=== PATIENT | male | born 1975 | race Caucasian/White ===

== ENCOUNTER 2018-08-26 20:49 | Emergency (ER) | payer OTHER, SELFPAY ==
[2018-08-26] MEDS ORDERED: Ondansetron PF 4 MG/2 ML Vial ONE (21:21)
[2018-08-26] MEDS ORDERED: Famotidine In NaCl 20 mg/50 ml Premix Bag ONE (21:21)
[2018-08-26 21:57] LABS: #Basophils 0.1 thou/uL (0.0-0.2); #Lymphocytes 1.6 thou/uL (1.20-3.40); #Neutrophils 11.2 thou/uL (1.40-6.50); %Basophils 0.8 % (0.0-1.0); %Eosinophils 0.3 % (0.0-10.0); %Lymphocytes 11.5 % (21.0-51.0); %Monocytes 6.9 % (0.0-10.0); %Neutrophils 80.4 % (42.0-75.0); Hemoglobin 18.5 g/dL (14.0-18.0); Mean Corpuscular HGB CONC 33.4 g/dL (32.0-36.0); Mean Corpuscular Hemoglobin 30.1 pg (27.0-31.0); Mean Corpuscular Volume 90.3 fL (78.0-98.0); Mean Platelet Volume 7.1 fL (7.4-10.4); Platelet Count 286 thou/uL (130-400); RBC Distribution Width 13.3 % (11.5-14.5); Red Blood Cell (RBC) Count 6.15 mill/uL (4.70-6.10); White Blood Cell (WBC) Count 13.9 thou/uL (4.8-10.8)
[2018-08-26 22:01] LABS: Bilirubin Negative (Negative); Blood, Urine Negative (Negative); Clarity Clear (Clear); Glucose, Urine (Dipstick) Negative (Negative); Leukocyte Negative (Negative); Nitrite Negative (Negative); Protein, Urine (Dipstick) Negative (Neg-Trace); Specific Gravity, Urine 1.025 (1.005-1.030); Urobilinogen 0.2 mg/dL (0.2-1.0); pH, Urine 5.5 (5.0-9.0)
[2018-08-26 22:10] LABS: ALT (SGPT) 25 U/L (8-55); AST (SGOT) 14 U/L (5-34); Albumin 4.5 g/dL (3.5-5.0); Alkaline Phosphatase 60 U/L (40-150); Anion Gap 14 mmol/L (10-20); BUN (Urea Nitrogen) 21 mg/dL (8.9-20.6); Bilirubin, Total 0.5 mg/dL (0.2-1.2); Calc. Creatinine Clearance 0 mL/min (70-130); Calcium 10.4 mg/dL (7.8-10.44); Carbon Dioxide 25 mmol/L (22-29); Chloride 101 mmol/L (98-107); Estimated GFR-MDRD 82; Globulin 3.5 g/dL (2.4-3.5); Glucose 100 mg/dL (70-105); Lipase 31 U/L (8-78); Potassium 4.4 mmol/L (3.5-5.1); Sodium 136 mmol/L (136-145)
[2018-08-26] MEDS ORDERED: Ciprofloxacin Lactate/D5W 400 mg/200 ml Premix ONE (22:23)
== END 2018-08-26 23:45 | disposition home or self-care (01) ==
LOC: BURERS 20:49
DX: R19.7 Diarrhea, unspecified (principal); F90.9 Attention-deficit hyperactivity disorder, unspecified type; F32.9 Major depressive disorder, single episode, unspecified; F41.9 Anxiety disorder, unspecified; R11.0 Nausea; Z79.899 Other long term (current) drug therapy
CPT/HCPCS: 36415; 80053; 81003; 82274; 83690; 85025; 87045; 87046; 87081; 87449; 87899; 96365; 96367; 96375; J0744; J2405

== ENCOUNTER 2018-12-15 20:45 | Emergency (ER) | payer SELFPAY ==
[2018-12-15] MEDS ORDERED: Promethazine HCl 25 MG/ML VIAL ONE (21:22)
[2018-12-15 21:30] LABS: Hemoglobin 18.1 g/dL (14.0-18.0); Mean Corpuscular HGB CONC 33.3 g/dL (32.0-36.0); Mean Corpuscular Hemoglobin 30.1 pg (27.0-31.0); Mean Corpuscular Volume 90.3 fL (78.0-98.0); Mean Platelet Volume 6.7 fL (7.4-10.4); Platelet Count 291 thou/uL (130-400); Red Blood Cell (RBC) Count 6.02 mill/uL (4.70-6.10)
[2018-12-15 21:34] LABS: ALT (SGPT) 25 U/L (8-55); AST (SGOT) 23 U/L (5-34); Albumin 5.1 g/dL (3.5-5.0); Alkaline Phosphatase 70 U/L (40-150); BUN (Urea Nitrogen) 38 mg/dL (8.9-20.6); Bilirubin, Total 0.9 mg/dL (0.2-1.2); Calc. Creatinine Clearance 0 mL/min (70-130); Calcium 11.3 mg/dL (7.8-10.44); Chloride 104 mmol/L (98-107); Estimated GFR-MDRD 17; Globulin 3.6 g/dL (2.4-3.5); Glucose 147 mg/dL (70-105); Lipase 47 U/L (8-78); Potassium 4.6 mmol/L (3.5-5.1); Protein, Total 8.7 g/dL (6.0-8.3); Sodium 141 mmol/L (136-145)
[2018-12-15 22:00] LABS: Lymphocytes 5 % (21-51); MDiff Complete? YES; Monocytes 10 % (0-10); Neutrophil 85 % (42-75); Platelet Morphology Comment Appears Adequate; RBC Morphology Normal
[2018-12-15 22:40] LABS: Bilirubin Negative (Negative); Blood, Urine Trace (Negative); Clarity Cloudy (Clear); Glucose, Urine (Dipstick) Negative (Negative); Leukocyte Trace (Negative); Nitrite Negative (Negative); Protein, Urine (Dipstick) 100 mg/dL (Neg-Trace); Urobilinogen 0.2 mg/dL (Less than 2)
[2018-12-15 22:49] LABS: Bacteria/HPF Rare-Few HPF (None Seen); Mucous/LPF 1+ LPF (<2+); RBC/HPF 0-3 HPF (0-3); Transitional Epithelial 0-3 HPF (None Seen)
== END 2018-12-15 23:10 | disposition short-term general hospital (02) ==
LOC: BURERS 20:45
DX: N17.9 Acute kidney failure, unspecified (principal); F90.9 Attention-deficit hyperactivity disorder, unspecified type; F32.9 Major depressive disorder, single episode, unspecified; F41.9 Anxiety disorder, unspecified; Z79.899 Other long term (current) drug therapy
CPT/HCPCS: 80053; 81003; 81015; 83690; 85025; 96365; 96372; J0500; J2550

== ENCOUNTER 2019-10-27 09:47 | Emergency (ER) | payer SELFPAY ==
[2019-10-27 10:34] LABS: #Basophils 0.2 thou/uL (0.0-0.2); #Eosinphils 0.1 thou/uL (0.0-0.7); #Monocytes 1.2 thou/uL (0.11-0.59); #Neutrophils 9.1 thou/uL (1.40-6.50); %Basophils 1.5 % (0.0-1.0); %Eosinophils 1.1 % (0.0-10.0); %Lymphocytes 21.7 % (21.0-51.0); %Monocytes 8.9 % (0.0-10.0); %Neutrophils 66.9 % (42.0-75.0); Hemoglobin 17.2 g/dL (14.0-18.0); Mean Corpuscular HGB CONC 31.6 g/dL (32.0-36.0); Mean Corpuscular Hemoglobin 29.5 pg (27.0-31.0); Mean Corpuscular Volume 93.5 fL (78.0-98.0); Mean Platelet Volume 7.4 fL (7.4-10.4); Platelet Count 312 thou/uL (130-400); RBC Distribution Width 12.7 % (11.5-14.5); Red Blood Cell (RBC) Count 5.82 mill/uL (4.70-6.10); White Blood Cell (WBC) Count 13.7 thou/uL (4.8-10.8)
[2019-10-27 10:49] LABS: ALT (SGPT) 77 U/L (8-55); AST (SGOT) 32 U/L (5-34); Albumin 4.5 g/dL (3.5-5.0); Alkaline Phosphatase 70 U/L (40-110); Anion Gap 20 mmol/L (10-20); BUN (Urea Nitrogen) 47 mg/dL (8.9-20.6); Bilirubin, Total 0.5 mg/dL (0.2-1.2); Calc. Creatinine Clearance 0 mL/min (70-130); Carbon Dioxide 19 mmol/L (22-29); Chloride 102 mmol/L (98-107); Estimated GFR-MDRD 31; Globulin 3.5 g/dL (2.4-3.5); Glucose 114 mg/dL (70-105); Lipase 32 U/L (8-78); Potassium 4.8 mmol/L (3.5-5.1); Sodium 136 mmol/L (136-145)
[2019-10-27] MEDS ORDERED: Amoxicillin/Potassium Clav 875 MG TAB ONE (12:14)
[2019-10-27] MEDS ORDERED: Ondansetron ODT 4 MG TAB ONE (12:14)
[2019-10-27 12:48] LABS: Bilirubin Negative (Negative); Blood, Urine Negative (Negative); Clarity Clear (Clear); Glucose, Urine (Dipstick) Negative (Negative); Ketone, Urine Negative (Negative); Leukocyte Negative (Negative); Nitrite Negative (Negative); Protein, Urine (Dipstick) Negative (Neg-Trace); Urobilinogen 0.2 mg/dL (Less than 2); pH, Urine 5.5 (5.0-9.0)
[2019-10-27 12:53] LABS: Specific Gravity, Urine 1.018 (1.002-1.036)
[2019-10-27 13:40] LABS: Anion Gap 14 mmol/L (10-20); BUN (Urea Nitrogen) 42 mg/dL (8.9-20.6); Calc. Creatinine Clearance 0 mL/min (70-130); Calcium 8.8 mg/dL (7.8-10.44); Carbon Dioxide 20 mmol/L (22-29); Chloride 107 mmol/L (98-107); Estimated GFR-MDRD 46; Glucose 95 mg/dL (70-105); Potassium 4.3 mmol/L (3.5-5.1); Sodium 137 mmol/L (136-145)
--- NOTE | 2019-10-27 14:13 | CT ---
CT ABDOMEN AND PELVIS WITHOUT CONTRAST: Date: 10/27/[address] of the abdomen and pelvis was done without oral or IV contrast. The patient's GFR was too l ow to risk contrast. The lung bases are clear, except for some minimal dependent atelectasis. A calcified granuloma is see n in the right lower lobe. A small hiatal hernia is present. The liver, spleen, pancreas, adrenal gla nds, gallbladder, and abdominal aorta showed no acute findings. Regarding the kidneys, there is a 1.6 cm rounded lucent lesion in the medial part of the left kidney, middle third. Statistically, this is most likely a simple cyst, but an elective ultrasound should be done at some point to confirm it. Some of the loops of small bowel show some nonspecific fluid filling, but no loops are distended or o bviously thickened. There are a few diverticula in the left colon. There are no gross findings of div erticulitis, though I would not around of the few diverticula, there is some questionable minimal str eaking. The amount is not enough to confidently diagnose diverticulitis at this time, but it is a con sideration, particularly if the patient is tender in the left lower quadrant. No free air or free flu id present. CT of the pelvis shows no pelvic masses, gross inflammatory changes, or free fluid. Small bilateral f at-filled inguinal hernias are present are of probably no concern. IMPRESSION: 1. Nonspecific fluid-filled loops of nondilated small bowel. This could be normal or signify minimal enteritis. 2. Diverticulosis of the left colon. Equivocal stranding around a few diverticula. See above. 3. Probable left renal cyst. An elective ultrasound is needed as a follow-up to prove it. Findings discussed with Dr. Pritchett at 1127 hours on 10/27/2019. CODE CR. POS: HOME
== END 2019-10-27 14:19 | disposition home or self-care (01) ==
LOC: BURERS 09:47
DX: K57.32 Diverticulitis of large intestine without perforation or abscess without bleeding (principal); N17.9 Acute kidney failure, unspecified; E86.0 Dehydration; I10 Essential (primary) hypertension; F41.9 Anxiety disorder, unspecified; F32.9 Major depressive disorder, single episode, unspecified; F90.9 Attention-deficit hyperactivity disorder, unspecified type
CPT/HCPCS: 36415; 74176; 80053; 81003; 82274; 83690; 85025; 96360; Q0162

== ENCOUNTER 2021-05-05 08:53 | Emergency (ER) | payer SELFPAY ==
[2021-05-05] MEDS ORDERED: Morphine 4 MG/ML VIAL ONE (09:16)
[2021-05-05] MEDS ORDERED: Ketorolac Tromethamine 30 MG/ML VIAL ONE (09:16)
== END 2021-05-05 11:06 | disposition home or self-care (01) ==
LOC: BURERS 08:53
DX: K02.9 Dental caries, unspecified (principal); I10 Essential (primary) hypertension
CPT/HCPCS: 93005; 96372; J1885; J2270

== ENCOUNTER 2021-07-26 14:11 | Emergency (ER) | payer MEDICAID, SELFPAY ==
[2021-07-26] MEDS ORDERED: Dexamethasone 10 MG/ML VIAL ONE (14:55)
[2021-07-26] MEDS ORDERED: Bicillin LA 1.2 MILLION UNITS/2 ML SYRINGE ONE (14:55)
[2021-07-26] MEDS ORDERED: Ibuprofen 200 MG TAB ONE (15:06)
== END 2021-07-26 15:10 | disposition home or self-care (01) ==
LOC: BURERS 14:11
DX: J02.9 Acute pharyngitis, unspecified (principal); I10 Essential (primary) hypertension
CPT/HCPCS: 96372; 99283; J0561; J1100

== ENCOUNTER 2021-08-17 08:29 | Outpatient (CLI) | payer MEDICAID | END 2021-08-17 08:30 | disposition home or self-care (01) | LOC: BURCT 08:29 | PROVIDERS: ATTEND Otolaryngology Plastic Surgery within the Head & Neck | DX: J34.2 Deviated nasal septum (principal) ==

== ENCOUNTER 2021-10-18 20:37 | Emergency (ER) | payer MEDICAID, OTHER ==
[2021-10-18] MEDS ORDERED: Bisacodyl 10 MG SUPP ONE (21:49)
[2021-10-18] MEDS ORDERED: Magnesium Citrate 300 ML BOT ONE (21:49)
== END 2021-10-18 21:53 | disposition home or self-care (01) ==
LOC: BURERS 20:37
DX: K59.00 Constipation, unspecified (principal); I10 Essential (primary) hypertension; G47.30 Sleep apnea, unspecified; Z79.899 Other long term (current) drug therapy
CPT/HCPCS: 74176

== ENCOUNTER 2021-10-21 21:15 | Emergency (ER) | payer OTHER | END 2021-10-22 00:53 | disposition home or self-care (01) | LOC: BURERS 21:15 | DX: K59.00 Constipation, unspecified (principal); I10 Essential (primary) hypertension; G47.30 Sleep apnea, unspecified; Z79.899 Other long term (current) drug therapy | CPT/HCPCS: 74018 ==

== ENCOUNTER 2021-11-01 13:36 | Emergency (ER) | payer OTHER ==
[2021-11-01] MEDS ORDERED: Hydrocodone-Acetamin 15 ML UDCUP ONE (15:11)
[2021-11-01] MEDS ORDERED: Lidocaine Viscous Sol 2% 15 ml UD Cup ONE (15:11)
[2021-11-01 15:15] LABS: #Basophils 0.1 thou/uL (0.0-0.2); #Eosinphils 0.3 thou/uL (0.0-0.7); #Lymphocytes 2.1 thou/uL (1.20-3.40); #Monocytes 0.7 thou/uL (0.11-0.59); #Neutrophils 7.3 thou/uL (1.40-6.50); %Basophils 1.2 % (0.0-1.0); %Eosinophils 2.6 % (0.0-10.0); %Lymphocytes 20.4 % (21.0-51.0); %Monocytes 6.9 % (0.0-10.0); %Neutrophils 68.9 % (42.0-75.0); Hemoglobin 17.6 g/dL (14.0-18.0); Mean Corpuscular HGB CONC 33.8 g/dL (32.0-36.0); Mean Corpuscular Hemoglobin 30.4 pg (27.0-31.0); Mean Platelet Volume 6.5 fL (7.4-10.4); Platelet Count 301 thou/uL (130-400); RBC Distribution Width 13.5 % (11.5-14.5); White Blood Cell (WBC) Count 10.5 thou/uL (4.8-10.8)
[2021-11-01] MEDS ORDERED: Ondansetron ODT 4 MG TAB ONE (15:15)
[2021-11-01 15:28] LABS: ALT (SGPT) 37 U/L (8-55); AST (SGOT) 13 U/L (5-34); Albumin 4.2 g/dL (3.5-5.0); Alkaline Phosphatase 74 U/L (40-110); Anion Gap 15 mmol/L (10-20); BUN (Urea Nitrogen) 23 mg/dL (8.9-20.6); Bilirubin, Total 0.6 mg/dL (0.2-1.2); Calc. Creatinine Clearance 0 mL/min (70-130); Carbon Dioxide 22 mmol/L (22-29); Chloride 107 mmol/L (98-107); Estimated GFR 106; Globulin 3.1 g/dL (2.4-3.5); Glucose 108 mg/dL (70-105); Potassium 4.5 mmol/L (3.5-5.1); Protein, Total 7.3 g/dL (6.0-8.3); Sodium 139 mmol/L (136-145)
[2021-11-01] MEDS ORDERED: Dexamethasone 10 MG/ML VIAL ONE (15:50)
== END 2021-11-01 17:00 | disposition home or self-care (01) ==
LOC: BURERS 13:36
DX: G89.18 Other acute postprocedural pain (principal); J02.9 Acute pharyngitis, unspecified; I10 Essential (primary) hypertension; G47.30 Sleep apnea, unspecified; Z79.899 Other long term (current) drug therapy
CPT/HCPCS: 36415; 80053; 85025; J1100; Q0162

== ENCOUNTER 2023-01-19 17:09 | Emergency (ER) | payer OTHER, SELFPAY ==
[2023-01-19] MEDS ORDERED: Ketorolac Tromethamine 30 MG/ML VIAL ONE (17:55)
[2023-01-19] MEDS ORDERED: Metoclopramide HCl 10 MG/2 ML VIAL ONE (17:55)
== END 2023-01-19 18:40 | disposition home or self-care (01) ==
LOC: BURERS 17:09
DX: G43.909 Migraine, unspecified, not intractable, without status migrainosus (principal); J01.80 Other acute sinusitis; B96.89 Other specified bacterial agents as the cause of diseases classified elsewhere; I10 Essential (primary) hypertension; G47.30 Sleep apnea, unspecified
CPT/HCPCS: 70450; 96365; 96375; J1885; J2765

== ENCOUNTER 2025-02-23 23:06 | Emergency (ER) | payer OTHER, SELFPAY ==
[2025-02-23] MEDS ORDERED: Ibuprofen 800 MG TAB ONE (23:38)
== END 2025-02-24 00:15 | disposition home or self-care (01) ==
LOC: BURERS 23:06
DX: J18.9 Pneumonia, unspecified organism (principal); I10 Essential (primary) hypertension; E66.01 Morbid (severe) obesity due to excess calories; Z79.899 Other long term (current) drug therapy
CPT/HCPCS: 71046; 87428

== ENCOUNTER 2025-03-06 00:23 | Emergency (ER) | payer OTHER | END 2025-03-06 02:00 | disposition home or self-care (01) | LOC: BURERS 00:23 | DX: K04.7 Periapical abscess without sinus (principal); I10 Essential (primary) hypertension; Z79.899 Other long term (current) drug therapy | CPT/HCPCS: 64400; 96372; J2270; J2272; J3490 ==